=== PATIENT | female | born 1965 | race Caucasian/White ===

== ENCOUNTER 2016-12-21 11:37 | Emergency (ER) | payer MEDICAID ==
[~2016-12-21] VITALS: Ht 149.9 cm; Wt 52.0 kg
[~2016-12-21 11:37] MED LIST: LISI1TAB3 PO; METF10002 PO; PROP10TA PO; TRAZ100T15 PO
[2016-12-21 11:58] LABS: HEMATOCRIT 45.7 % (34.6-47.8); HEMOGLOBIN 14.9 g/dL (11.7-16.4); WHITE BLOOD COUNT 9.4 x10^3/uL (3.4-10)
[2016-12-21] MEDS ORDERED: OMNIPAQUE 350 MG/ML, 100ML BOTTLE ONE (12:07)
[2016-12-21] MEDS ORDERED: FLUO20CA8 PO (13:14)
[2016-12-21] MEDS ORDERED: LISI-170 PO (13:14)
[2016-12-21 15:39] VITALS: BP 147/119
== END 2016-12-21 15:41 | disposition home or self-care (01) ==
LOC: ED 15:25
DX: R53.1 Weakness (principal); E11.9 Type 2 diabetes mellitus without complications; G43.909 Migraine, unspecified, not intractable, without status migrainosus; I10 Essential (primary) hypertension; Z90.710 Acquired absence of both cervix and uterus
CPT/HCPCS: 36415; 70450; 70496; 70498; 70551; 80047; 85025; 85610; 85730; 93005; 99291; Q9967

== ENCOUNTER 2017-08-16 08:13 | Inpatient (IN) | payer MEDICAID ==
[~2017-08-16] VITALS: Ht 149.9 cm; Wt 56.3 kg
[2017-08-16] VITALS (8 sets, daily range): BP systolic 103–154; BP diastolic 71–100
[~2017-08-16 08:13] MED LIST changes: +FLUO20CA8 PO; +LISI-170 PO
[2017-08-16] MEDS ORDERED: ONDANSETRON 2MG/ML, 2ML IVPush ONE (09:00)
[2017-08-16] MEDS ORDERED: SODIUM CHLORIDE FLUSH 10ML SYR IVF ONE (09:00)
[2017-08-16] MEDS ORDERED: MORPHINE SULFATE 4 MG/ML, 1ML IVPush PRN (09:00)
[2017-08-16] MEDS ORDERED: MORPHINE SULFATE 4 MG/ML, 1ML ONE (09:08)
[2017-08-16 09:26] LABS: BASOPHILS % (AUTO) 0 % (0-1); EOSINOPHILS # (AUTO) 0.03 x10^3/uL (0-0.4); EOSINOPHILS % (AUTO) 0 % (1-7); LYMPHOCYTES # (AUTO) 1.16 x10^3/uL (1-3.4); LYMPHOCYTES % (AUTO) 7 % (22-44); MD NO; MEAN CORPUSCULAR HEMOGLOBIN 28.5 pg (27.0-34.8); MEAN CORPUSCULAR HGB CONC 32.9 g/dL (32.4-35.8); MEAN CORPUSCULAR VOLUME 86.5 fL (80-100); MEAN PLATELET VOLUME 8.7 fL (7.4-10.4); MONOCYTES # (AUTO) 0.58 x10^3/uL (0.2-0.8); MONOCYTES % (AUTO) 3 % (2-9); NEUTROPHILS # (AUTO) 15.82 x10^3/uL (1.8-6.8); NEUTROPHILS % (AUTO) 90 % (42-75); PLATELET COUNT 331 x10^3/uL (130-400); RED BLOOD COUNT 4.44 x10^6/uL (3.82-5.3); RED CELL DISTRIBUTION WIDTH 12.9 % (9.6-15.2)
[2017-08-16 09:37] LABS: ALANINE AMINOTRANSFERASE 16 U/L (12-78); ALBUMIN 3.1 g/dL (3.4-5.0); ANION GAP 10 mmol/L (5-15); CALCIUM 7.8 mg/dL (8.5-10.1); CHLORIDE 108 mmol/L (98-107); CREATININE 1.08 mg/dL (0.55-1.02)
[2017-08-16] MEDS ORDERED: CEFTRIAXONE PMX 1GM/50ML 50 ML ONE ×2 (09:39→11:04)
[2017-08-16 09:42] LABS: ALKALINE PHOSPHATASE 87 U/L (45-117); BILIRUBIN,TOTAL 0.4 mg/dL (0.2-1.0); TOTAL PROTEIN 6.4 g/dL (6.4-8.2)
[2017-08-16] MEDS ORDERED: CEFTRIAXONE PMX 1GM/50ML 50 ML IV ONE ×2 (10:00→11:00)
[2017-08-16 10:25] LABS: CULTURE INDICATED? YES; MICROSCOPIC INDICATED
[2017-08-16] MEDS ORDERED: OMNIPAQUE 350 MG/ML, 100ML BOTTLE ONE (10:37)
[2017-08-16] MEDS: SODIUM CHLORIDE 0.9% 1,000 ML IV SCH (13:48)
[2017-08-16] MEDS ORDERED: ONDANSETRON 2MG/ML, 2ML IVPush PRN (14:00)
[2017-08-16] MEDS ORDERED: POLYETHYLENE GLYCOL 17 GM PACKET PO PRN (14:00)
[2017-08-16] MEDS: HYDROcodone/APAP 5/325 TABLET PO PRN (18:01)
[2017-08-16] MEDS: METRONIDAZOLE PMX 500MG/100ML 100 ML IV SCH (18:02)
[2017-08-16] MEDS: LABETALOL 5MG/ML, 20ML IVPush PRN (20:12)
[2017-08-16] MEDS: TRAZODONE 50MG TABLET PO SCH (21:00)
[2017-08-17] VITALS (12 sets, daily range): BP systolic 116–182; BP diastolic 78–116
[2017-08-17] MEDS: SODIUM CHLORIDE 0.9% 1,000 ML IV SCH ×2 (01:11→17:15)
[2017-08-17] MEDS: METRONIDAZOLE PMX 500MG/100ML 100 ML IV SCH ×3 (01:16→17:15)
[2017-08-17 05:47] LABS: BASOPHILS # (AUTO) 0.03 x10^3/uL (0-0.1); BASOPHILS % (AUTO) 0 % (0-1); EOSINOPHILS # (AUTO) 0.09 x10^3/uL (0-0.4); EOSINOPHILS % (AUTO) 1 % (1-7); LYMPHOCYTES # (AUTO) 2.37 x10^3/uL (1-3.4); LYMPHOCYTES % (AUTO) 30 % (22-44); MD NO; MEAN CORPUSCULAR HEMOGLOBIN 29.7 pg (27.0-34.8); MEAN CORPUSCULAR HGB CONC 34.3 g/dL (32.4-35.8); MEAN CORPUSCULAR VOLUME 86.6 fL (80-100); MEAN PLATELET VOLUME 8.5 fL (7.4-10.4); MONOCYTES # (AUTO) 0.77 x10^3/uL (0.2-0.8); MONOCYTES % (AUTO) 10 % (2-9); NEUTROPHILS # (AUTO) 4.75 x10^3/uL (1.8-6.8); NEUTROPHILS % (AUTO) 59 % (42-75); PLATELET COUNT 302 x10^3/uL (130-400); RED BLOOD COUNT 3.63 x10^6/uL (3.82-5.3); RED CELL DISTRIBUTION WIDTH 13.3 % (9.6-15.2)
[2017-08-17 05:58] LABS: CHLORIDE 107 mmol/L (98-107)
[2017-08-17 06:03] LABS: ALANINE AMINOTRANSFERASE 13 U/L (12-78); ALBUMIN 2.8 g/dL (3.4-5.0); ALKALINE PHOSPHATASE 71 U/L (45-117); ANION GAP 6 mmol/L (5-15); BILIRUBIN,TOTAL 0.2 mg/dL (0.2-1.0); TOTAL PROTEIN 5.8 g/dL (6.4-8.2)
[2017-08-17] MEDS: SENNA/DOCUSATE TABLET PO SCH (08:31)
[2017-08-17] MEDS: HYDROcodone/APAP 5/325 TABLET PO PRN ×2 (08:31→17:43)
[2017-08-17] MEDS: FLUOXETINE HCL 20 MG CAPSULE PO SCH (08:32)
[2017-08-17] MEDS: CEFTRIAXONE PMX 1GM/50ML 50 ML IV SCH (10:22)
[2017-08-17] MEDS ORDERED: OMNIPAQUE 350 MG/ML, 100ML BOTTLE ONE (16:00)
[2017-08-17] MEDS: LABETALOL 5MG/ML, 20ML IVPush PRN (20:03)
[2017-08-17] MEDS: TRAZODONE 50MG TABLET PO SCH (21:59)
[2017-08-18] VITALS (9 sets, daily range): BP systolic 119–183; BP diastolic 88–110
[2017-08-18] MEDS: METRONIDAZOLE PMX 500MG/100ML 100 ML IV SCH ×3 (00:54→17:05)
[2017-08-18] MEDS: ONDANSETRON ODT 4 MG PO PRN (05:06)
[2017-08-18] MEDS: SODIUM CHLORIDE 0.9% 1,000 ML IV SCH (05:08)
[2017-08-18] MEDS: LABETALOL 5MG/ML, 20ML IVPush PRN ×2 (06:56→19:38)
[2017-08-18 07:22] LABS: BASOPHILS # (AUTO) 0.02 x10^3/uL (0-0.1); BASOPHILS % (AUTO) 0 % (0-1); EOSINOPHILS # (AUTO) 0.02 x10^3/uL (0-0.4); EOSINOPHILS % (AUTO) 0 % (1-7); LYMPHOCYTES # (AUTO) 1.39 x10^3/uL (1-3.4); LYMPHOCYTES % (AUTO) 17 % (22-44); MD NO; MEAN CORPUSCULAR HEMOGLOBIN 28.5 pg (27.0-34.8); MEAN CORPUSCULAR HGB CONC 33.1 g/dL (32.4-35.8); MEAN CORPUSCULAR VOLUME 86.1 fL (80-100); MEAN PLATELET VOLUME 8.3 fL (7.4-10.4); MONOCYTES # (AUTO) 0.68 x10^3/uL (0.2-0.8); MONOCYTES % (AUTO) 8 % (2-9); NEUTROPHILS # (AUTO) 6.33 x10^3/uL (1.8-6.8); NEUTROPHILS % (AUTO) 75 % (42-75); PLATELET COUNT 283 x10^3/uL (130-400); RED BLOOD COUNT 3.28 x10^6/uL (3.82-5.3); RED CELL DISTRIBUTION WIDTH 13.3 % (9.6-15.2)
[2017-08-18] MEDS ORDERED: PROMETHAZINE 25 MG/ML, 1ML IM ONE (07:30)
[2017-08-18 07:31] LABS: % IRON SATURATION 12 % (20-55); ALBUMIN 3.1 g/dL (3.4-5.0); ANION GAP 9 mmol/L (5-15); CHLORIDE 103 mmol/L (98-107); CREATININE 0.65 mg/dL (0.55-1.02); IRON LEVEL 25 mcg/dL (50-170); TOTAL IRON BINDING CAPACITY 213 mcg/dL (250-450)
[2017-08-18 07:57] LABS: FREE T4 (FREE THYROXINE) 1.12 ng/dL (0.76-1.46); THYROID STIMULATING HORMONE 0.327 mIU/L (0.358-3.740)
[2017-08-18] MEDS: SENNA/DOCUSATE TABLET PO SCH (09:00)
[2017-08-18] MEDS: FLUOXETINE HCL 20 MG CAPSULE PO SCH (09:00)
[2017-08-18] MEDS ORDERED: MORPHINE SULFATE 4 MG/ML, 1ML ONE (09:36)
[2017-08-18] MEDS ORDERED: MORPHINE SULFATE 4 MG/ML, 1ML IVPush ONE (10:00)
[2017-08-18] MEDS: CEFTRIAXONE PMX 1GM/50ML 50 ML IV SCH (10:50)
[2017-08-18] MEDS ORDERED: MAGNESIUM SULFATE PMX 2GM/50ML 50 ML IV ONE (11:30)
[2017-08-18] MEDS: D5%-0.45% NACL 1,000 ML IV SCH ×2 (11:39→19:39)
[2017-08-18] MEDS ORDERED: FENTANYL PF 100 MCG/2ML ONE (16:02)
[2017-08-18] MEDS ORDERED: NALOXONE 1 MG/ML, 2ML ONE (16:02)
[2017-08-18] MEDS ORDERED: MIDAZOLAM 1 MG/ML, 5ML ONE (16:18)
[2017-08-18] MEDS: TRAZODONE 50MG TABLET PO SCH (21:10)
[2017-08-19] VITALS (9 sets, daily range): BP systolic 115–159; BP diastolic 81–102
[2017-08-19] MEDS: D5%-0.45% NACL 1,000 ML IV SCH (01:38)
[2017-08-19] MEDS: METRONIDAZOLE PMX 500MG/100ML 100 ML IV SCH ×3 (01:38→23:31)
[2017-08-19] MEDS: LABETALOL 5MG/ML, 20ML IVPush PRN (06:03)
[2017-08-19 08:36] LABS: ALANINE AMINOTRANSFERASE 13 U/L (12-78); ALBUMIN 2.9 g/dL (3.4-5.0); ANION GAP 7 mmol/L (5-15); CHLORIDE 104 mmol/L (98-107)
[2017-08-19 08:38] LABS: ALKALINE PHOSPHATASE 71 U/L (45-117); BILIRUBIN,TOTAL 0.4 mg/dL (0.2-1.0); TOTAL PROTEIN 6.2 g/dL (6.4-8.2)
[2017-08-19 08:43] LABS: BASOPHILS # (AUTO) 0.02 x10^3/uL (0-0.1); BASOPHILS % (AUTO) 0 % (0-1); EOSINOPHILS # (AUTO) 0.02 x10^3/uL (0-0.4); EOSINOPHILS % (AUTO) 0 % (1-7); LYMPHOCYTES % (AUTO) 34 % (22-44); MD NO; MEAN CORPUSCULAR HEMOGLOBIN 28.3 pg (27.0-34.8); MEAN CORPUSCULAR HGB CONC 33.1 g/dL (32.4-35.8); MEAN CORPUSCULAR VOLUME 85.5 fL (80-100); MEAN PLATELET VOLUME 8.5 fL (7.4-10.4); MONOCYTES # (AUTO) 0.73 x10^3/uL (0.2-0.8); MONOCYTES % (AUTO) 12 % (2-9); NEUTROPHILS # (AUTO) 3.12 x10^3/uL (1.8-6.8); NEUTROPHILS % (AUTO) 53 % (42-75); PLATELET COUNT 321 x10^3/uL (130-400); RED BLOOD COUNT 3.45 x10^6/uL (3.82-5.3); RED CELL DISTRIBUTION WIDTH 13.4 % (9.6-15.2)
[2017-08-19] MEDS: SENNA/DOCUSATE TABLET PO SCH (09:17)
[2017-08-19] MEDS: FLUOXETINE HCL 20 MG CAPSULE PO SCH (09:18)
[2017-08-19] MEDS ORDERED: SODIUM PHOSPHATE 4 MEQ/ML IV SCH (09:30)
[2017-08-19] MEDS: CEFTRIAXONE PMX 1GM/50ML 50 ML IV SCH (10:12)
[2017-08-19] MEDS ORDERED: SODIUM PHOSPHATE 30 MMOL in SODIUM CHLORIDE 0.9% 500 ML IV ONE (11:00)
[2017-08-19] MEDS ORDERED: POTASSIUM CHLORIDE 20 MEQ TAB.ER.PRT PO ONE ×2 (11:00→13:00)
[2017-08-19 14:56] LABS: ALBUMIN 2.7 g/dL (3.4-5.0); ANION GAP 7 mmol/L (5-15); CALCIUM 7.6 mg/dL (8.5-10.1); CHLORIDE 104 mmol/L (98-107); CREATININE 0.71 mg/dL (0.55-1.02)
[2017-08-19] MEDS: TRAZODONE 50MG TABLET PO SCH (21:04)
[2017-08-20] VITALS (11 sets, daily range): BP systolic 114–162; BP diastolic 79–106
[2017-08-20] MEDS: HYDROcodone/APAP 5/325 TABLET PO PRN (00:59)
[2017-08-20 06:29] LABS: BASOPHILS # (AUTO) 0.05 x10^3/uL (0-0.1); BASOPHILS % (AUTO) 1 % (0-1); EOSINOPHILS # (AUTO) 0.06 x10^3/uL (0-0.4); EOSINOPHILS % (AUTO) 1 % (1-7); LYMPHOCYTES # (AUTO) 2.28 x10^3/uL (1-3.4); LYMPHOCYTES % (AUTO) 27 % (22-44); MD NO; MEAN CORPUSCULAR HEMOGLOBIN 28.4 pg (27.0-34.8); MEAN CORPUSCULAR HGB CONC 33.2 g/dL (32.4-35.8); MEAN CORPUSCULAR VOLUME 85.7 fL (80-100); MEAN PLATELET VOLUME 8.4 fL (7.4-10.4); MONOCYTES # (AUTO) 1.02 x10^3/uL (0.2-0.8); MONOCYTES % (AUTO) 12 % (2-9); NEUTROPHILS # (AUTO) 4.93 x10^3/uL (1.8-6.8); NEUTROPHILS % (AUTO) 59 % (42-75); PLATELET COUNT 336 x10^3/uL (130-400); RED BLOOD COUNT 3.41 x10^6/uL (3.82-5.3); RED CELL DISTRIBUTION WIDTH 13.3 % (9.6-15.2)
[2017-08-20 06:42] LABS: ALBUMIN 2.7 g/dL (3.4-5.0); ANION GAP 9 mmol/L (5-15); CHLORIDE 106 mmol/L (98-107)
[2017-08-20 06:45] LABS: ALANINE AMINOTRANSFERASE 12 U/L (12-78); ALKALINE PHOSPHATASE 64 U/L (45-117); BILIRUBIN,TOTAL 0.5 mg/dL (0.2-1.0); CREATININE 0.67 mg/dL (0.55-1.02); TOTAL PROTEIN 5.8 g/dL (6.4-8.2)
[2017-08-20] MEDS: METRONIDAZOLE PMX 500MG/100ML 100 ML IV SCH ×3 (08:53→21:51)
[2017-08-20] MEDS: FLUOXETINE HCL 20 MG CAPSULE PO SCH (08:54)
[2017-08-20] MEDS: SENNA/DOCUSATE TABLET PO SCH (08:54)
[2017-08-20] MEDS ORDERED: CYANOCOBALAMIN 1,000 MCG/ML, 1ML IM ONE (10:30)
[2017-08-20] MEDS: CEFTRIAXONE PMX 1GM/50ML 50 ML IV SCH (11:20)
[2017-08-20] MEDS: ONDANSETRON ODT 4 MG PO PRN (13:58)
[2017-08-20] MEDS: LABETALOL 5MG/ML, 20ML IVPush PRN (21:51)
[2017-08-20] MEDS: TRAZODONE 50MG TABLET PO SCH (21:51)
[2017-08-21 02:11] VITALS: BP 133/91
[2017-08-21 05:45] LABS: CHLORIDE 103 mmol/L (98-107)
[2017-08-21 05:49] LABS: ALBUMIN 2.7 g/dL (3.4-5.0); ANION GAP 8 mmol/L (5-15); CREATININE 0.58 mg/dL (0.55-1.02)
[2017-08-21] MEDS: METRONIDAZOLE PMX 500MG/100ML 100 ML IV SCH (06:10)
[2017-08-21 07:09] VITALS: BP 153/97
[2017-08-21] MEDS ORDERED: METR500T PO (07:53)
[2017-08-21] MEDS ORDERED: CEFD300C37 PO (07:53)
[2017-08-21] MEDS ORDERED: CYAN10005 PO (07:53)
[2017-08-21] MEDS ORDERED: MAGNESIUM SULFATE PMX 2GM/50ML 50 ML IV ONE (09:00)
[2017-08-21] MEDS ORDERED: CYANOCOBALAMIN 1,000 MCG TABLET PO SCH (09:00)
[2017-08-21] MEDS: SENNA/DOCUSATE TABLET PO SCH (09:00)
[2017-08-21] MEDS: FLUOXETINE HCL 20 MG CAPSULE PO SCH (09:07)
[2017-08-21] MEDS: CEFTRIAXONE PMX 1GM/50ML 50 ML IV SCH (10:00)
== END 2017-08-21 11:30 | disposition home or self-care (01) | DRG 871 ==
LOC: ED 10:59 → EDIP 12:06 → 4EST 12:53 → 4WST 16:47
PROVIDERS: ADMIT Family Medicine; ATTEND Family Medicine
PROC: 0JB83ZX Excision of Abdomen Subcutaneous Tissue and Fascia, Percutaneous Approach, Diagnostic (ICD-10-PCS; principal; 2017-08-18)
DX: A41.9 Sepsis, unspecified organism (principal); E43 Unspecified severe protein-calorie malnutrition; N17.0 Acute kidney failure with tubular necrosis; E87.2 Acidosis; T68.XXXA Hypothermia, initial encounter; I27.20 Pulmonary hypertension, unspecified; E83.39 Other disorders of phosphorus metabolism; E83.42 Hypomagnesemia; N10 Acute pyelonephritis; I77.4 Celiac artery compression syndrome; N30.90 Cystitis, unspecified without hematuria; E11.9 Type 2 diabetes mellitus without complications; I10 Essential (primary) hypertension; I25.10 Atherosclerotic heart disease of native coronary artery without angina pectoris; F32.9 Major depressive disorder, single episode, unspecified; R16.1 Splenomegaly, not elsewhere classified; K44.9 Diaphragmatic hernia without obstruction or gangrene; B96.20 Unspecified Escherichia coli [E. coli] as the cause of diseases classified elsewhere; I95.1 Orthostatic hypotension; Z82.3 Family history of stroke; Z68.25 Body mass index [BMI] 25.0-25.9, adult; Z82.49 Family history of ischemic heart disease and other diseases of the circulatory system; Z90.81 Acquired absence of spleen; Z91.81 History of falling; Z87.891 Personal history of nicotine dependence; X31.XXXA Exposure to excessive natural cold, initial encounter
CPT/HCPCS: 36415; 49180; 74174; 74177; 77012; 78215; 80048; 80053; 81001; 82040; 82607; 82728; 82962; 83540; 83550; 83605; 83690; 83735; 84100; 84439; 84443; 84703; 85025; 87040; 87077; 87086; 87186; 88305; 88341; 88342; 93005; 93306; 93880; 96365; 96366; 96375; 99156; 99157; J0696; J2250; J2405; J2550; J3010; Q0162; Q9967; A9541; C9898; G0461; J2310; J3420; J3475; J7030; J7040